=== PATIENT | female | born 1965 | race Caucasian/White ===

== ENCOUNTER 2016-06-05 20:50 | Inpatient (IN) | payer OTHER ==
[~2016-06-05] VITALS: Ht 154.9 cm; Wt 94.4 kg
[2016-06-05] MEDS ORDERED: PROAIR HFA8.5 GM INH (22:48)
[2016-06-05] MEDS ORDERED: CELEXA40 MG PO (22:49)
[2016-06-05] MEDS ORDERED: SYMBICORT 160-1 INHA INH (22:49)
[2016-06-05] MEDS ORDERED: VENTOLIN/PROVE0.5 ML INH (23:03)
[2016-06-05] MEDS ORDERED: CITALOPRAM HBR20 MG PO ×2 (23:04→23:07)
[2016-06-05] MEDS ORDERED: SYMBICORT 16010.2 GM INH (23:04)
[2016-06-05] MEDS ORDERED: FLEXERIL 10 MG10 MG PO (23:07)
[2016-06-05] MEDS ORDERED: HYDROCHLOROTHIA25 MG PO (23:08)
[2016-06-05] MEDS ORDERED: NEURONTIN 400400 MG PO (23:08)
[2016-06-05] MEDS ORDERED: NORCO 10-325 T1 EACH PO (23:09)
[2016-06-05] MEDS ORDERED: VISTARIL 50 MG50 MG PO (23:10)
[2016-06-05] MEDS ORDERED: COMBIVENT0.074 GM/I INH ×2 (23:10→23:11)
[2016-06-05] MEDS ORDERED: ZESTRIL 40 MG T40 MG PO (23:12)
[2016-06-05] MEDS ORDERED: NICODERM CQ1 EAC1 TD (23:13)
[2016-06-05] MEDS ORDERED: SEROQUEL50 MG PO (23:14)
[2016-06-05] MEDS ORDERED: ZOCOR10 MG PO (23:14)
[2016-06-05] MEDS ORDERED: ZOLOFT100 MG PO (23:14)
[2016-06-05] MEDS ORDERED: INCRUSE ELLI62.5 MCG INH (23:15)
[2016-06-06 01:53] LABS: HEMOGLOBIN 9.8 gm/dl (12.3-15.3); RED BLOOD COUNT 3.58 M/UL (4.00-5.10); WHITE BLOOD COUNT 11.6 K/UL (4.5-11.0)
[2016-06-07 03:30] LABS: RED BLOOD COUNT 3.32 M/UL (4.00-5.10); WHITE BLOOD COUNT 13.3 K/UL (4.5-11.0)
[2016-06-08 05:45] LABS: HEMOGLOBIN 7.8 gm/dl (12.3-15.3)
[2016-06-08 05:50] LABS: RED BLOOD COUNT 2.9 M/UL (4.00-5.10); WHITE BLOOD COUNT 6.1 K/UL (4.5-11.0)
[2016-06-08 06:07] LABS: BUN/CREATININE RATIO 25 (0-10)
[2016-06-08 09:54] LABS: HEMOGLOBIN 7.9 gm/dl (12.3-15.3)
[2016-06-08 18:09] LABS: HEMOGLOBIN 7.8 gm/dl (12.3-15.3)
[2016-06-09 03:55] LABS: HEMOGLOBIN 7.8 gm/dl (12.3-15.3); RED BLOOD COUNT 2.91 M/UL (4.00-5.10); WHITE BLOOD COUNT 6.6 K/UL (4.5-11.0)
[2016-06-09 04:23] LABS: BUN/CREATININE RATIO 27 (0-10)
[2016-06-09] MEDS ORDERED: VITAMIN D50000 UNIT PO (20:31)
[2016-06-10 04:08] LABS: HEMOGLOBIN 7.7 gm/dl (12.3-15.3); RED BLOOD COUNT 2.87 M/UL (4.00-5.10); WHITE BLOOD COUNT 6.5 K/UL (4.5-11.0)
[2016-06-10 04:42] LABS: BUN/CREATININE RATIO 28 (0-10)
[2016-06-11 03:34] LABS: RED BLOOD COUNT 2.92 M/UL (4.00-5.10); WHITE BLOOD COUNT 5.7 K/UL (4.5-11.0)
[2016-06-11 03:52] LABS: BUN/CREATININE RATIO 38 (0-10)
[2016-06-12 03:51] LABS: HEMOGLOBIN 8.7 gm/dl (12.3-15.3)
[2016-06-12 03:54] LABS: RED BLOOD COUNT 3.24 M/UL (4.00-5.10); WHITE BLOOD COUNT 8.1 K/UL (4.5-11.0)
[2016-06-12 04:09] LABS: BUN/CREATININE RATIO 52 (0-10)
[2016-06-13 04:34] LABS: HEMOGLOBIN 9.4 gm/dl (12.3-15.3); RED BLOOD COUNT 3.48 M/UL (4.00-5.10)
[2016-06-13 04:42] LABS: WHITE BLOOD COUNT 10.8 K/UL (4.5-11.0)
[2016-06-13 04:49] LABS: BUN/CREATININE RATIO 70 (0-10)
[2016-06-14 04:48] LABS: RED BLOOD COUNT 3.72 M/UL (4.00-5.10)
[2016-06-14 04:49] LABS: WHITE BLOOD COUNT 13.8 K/UL (4.5-11.0)
[2016-06-14 05:08] LABS: BUN/CREATININE RATIO 70 (0-10)
[2016-06-15 04:16] LABS: HEMOGLOBIN 10.3 gm/dl (12.3-15.3); RED BLOOD COUNT 3.82 M/UL (4.00-5.10); WHITE BLOOD COUNT 12.8 K/UL (4.5-11.0)
[2016-06-15 04:40] LABS: BUN/CREATININE RATIO 75 (0-10)
[2016-06-16 03:49] LABS: HEMOGLOBIN 10.3 gm/dl (12.3-15.3); RED BLOOD COUNT 3.82 M/UL (4.00-5.10); WHITE BLOOD COUNT 9.8 K/UL (4.5-11.0)
[2016-06-16 04:07] LABS: BUN/CREATININE RATIO 70 (0-10)
[2016-06-17] MEDS ORDERED: LISINOPRIL10 MG PO (17:24)
[2016-06-17] MEDS ORDERED: PROTONIX 40 MG40 M1 PO (17:31)
[2016-06-17] MEDS ORDERED: THERAGRAN TAB1 EA PO (17:31)
[2016-06-17] MEDS ORDERED: IPRAT-ALBUT 0.5-3 ML INH (17:39)
== END 2016-06-17 18:05 | disposition home or self-care (01) | DRG 870 ==
LOC: CCU 20:50 → M/S 22:37
PROVIDERS: Internal Medicine; Internal Medicine Infectious Disease; ADMIT Internal Medicine
PROC: 5A1955Z Respiratory Ventilation, Greater than 96 Consecutive Hours (ICD-10-PCS; principal; 2016-06-07)
PROC: 0BH17EZ Insertion of Endotracheal Airway into Trachea, Via Natural or Artificial Opening (ICD-10-PCS; 2016-06-07)
PROC: 02HV33Z Insertion of Infusion Device into Superior Vena Cava, Percutaneous Approach (ICD-10-PCS; 2016-06-08)
DX: A41.9 Sepsis, unspecified organism (principal); J18.9 Pneumonia, unspecified organism; R65.21 Severe sepsis with septic shock; J96.01 Acute respiratory failure with hypoxia; G93.40 Encephalopathy, unspecified; N17.9 Acute kidney failure, unspecified; J44.0 Chronic obstructive pulmonary disease with (acute) lower respiratory infection; E87.1 Hypo-osmolality and hyponatremia; M62.82 Rhabdomyolysis; F17.210 Nicotine dependence, cigarettes, uncomplicated; Z99.81 Dependence on supplemental oxygen; I10 Essential (primary) hypertension; E78.5 Hyperlipidemia, unspecified; I27.2 Other secondary pulmonary hypertension; D64.9 Anemia, unspecified
CPT/HCPCS: ECHO; 31500; 36415; 36600; 71010; 74000; 80048; 80053; 80202; 82272; 82550; 82570; 82607; 82728; 82746; 82803; 83036; 83540; 83550; 83605; 83735; 84100; 84132; 84300; 84439; 84443; 85014; 85018; 85025; 85027; 87040; 87070; 87205; 87278; 87899; 93306; 94002; 94003; 94640; 94660; 94664; 97110; 97116; 97530; 97535; A4628; C9113; J1205; J1335; J1650; J1756; J1940; J2060; J2250; J2280; J2543; J3370; J7030; J7040; J7050; J7070

== ENCOUNTER → 2021-09-04 | Outpatient (CLI) | payer OTHER ==
[~2021-09-04] MED LIST: CELEXA40 MG PO; CITALOPRAM HBR20 MG PO; COMBIVENT0.074 GM/I INH; FLEXERIL 10 MG10 MG PO; HYDROCHLOROTHIA25 MG PO; INCRUSE ELLI62.5 MCG INH; IPRAT-ALBUT 0.5-3 ML INH; LISINOPRIL10 MG PO; NEURONTIN 400400 MG PO; NICODERM CQ1 EAC1 TD; NORCO 10-325 T1 EACH PO; PROAIR HFA8.5 GM INH; PROTONIX 40 MG40 M1 PO; SEROQUEL50 MG PO; SYMBICORT 160-1 INHA INH; SYMBICORT 16010.2 GM INH; THERAGRAN TAB1 EA PO; VENTOLIN/PROVE0.5 ML INH; VISTARIL 50 MG50 MG PO; VITAMIN D50000 UNIT PO; ZESTRIL 40 MG T40 MG PO; ZOCOR10 MG PO; ZOLOFT100 MG PO
== END ==
LOC: KOH-I 08-29 12:15
DX: M97.8XXA Periprosthetic fracture around other internal prosthetic joint, initial encounter (principal)
CPT/HCPCS: 73700